=== PATIENT | male | born 1990 | race African-American/Black ===

== ENCOUNTER 2018-01-10 10:27 | Emergency (ER) | payer OTHER ==
[~2018-01-10] VITALS: Ht 167.6 cm; Wt 83.0 kg
[2018-01-10 10:33] VITALS: BP 114/57
== END 2018-01-10 12:30 | disposition left against medical advice (07) ==
LOC: ER 10:27
DX: Z04.3 Encounter for examination and observation following other accident (principal); Z53.21 Procedure and treatment not carried out due to patient leaving prior to being seen by health care provider